=== PATIENT | female | born 1935 | race Caucasian/White ===

== ENCOUNTER 2020-01-09 15:51 | Emergency (ER) | payer OTHER ==
[~2020-01-09] VITALS: Ht 152.4 cm; Wt 54.4 kg
[2020-01-09 16:33] LABS: URINE BILIRUBIN NEGATIVE (Negative); URINE BLOOD NEGATIVE (Negative); URINE CLARITY CLEAR; URINE COLOR YELLOW; URINE GLUCOSE-RANDOM* NEGATIVE (Negative); URINE KETONES NEGATIVE (Negative); URINE NITRITE-REFLEX NEGATIVE (Negative); URINE PROTEIN (DIPSTICK) NEGATIVE (Negative); URINE UROBILINOGEN 0.2 E.U./dl (0.2-1.0)
[2020-01-09 16:36] LABS: URINE LEUKOCYTES-REFLEX 1+ (Negative)
[2020-01-09 16:38] LABS: BASOPHILS 1.1 % (0.0-2.0); EOSINOPHILS 0.7 % (0.0-3.0); HEMATOCRIT 37.2 % (37.0-47.0); HEMOGLOBIN 12.1 gm/dL (12.0-15.0); LYMPHOCYTES 26.7 % (24.0-44.0); MCH 30.4 pg (26.0-34.0); MCHC 32.6 g/dL (28.0-37.0); MCV 93.2 fL (80.0-100.0); MONOCYTES 7.1 % (1.0-8.0); PLATELET COUNT 257 thou/uL (150-400); POLYS 64.4 % (36.0-66.0); RDW 16.1 % (10.5-14.5); WBC 6.2 thou/uL (4.0-11.0)
[2020-01-09 16:42] LABS: AMP/METHAMP Negative (Negative); BARBITURATES Negative (Negative); BENZODIAZEPINES POSITIVE (Negative); COCAINE Negative (Negative); METHADONE Negative (Negative); OPIATES Negative (Negative); PCP Negative (Negative)
[2020-01-09 16:47] LABS: BACTERIA-REFLEX 1-9 Few /HPF (None Seen); CASTS None Seen /LPF (None Seen); CRYSTALS None Seen /LPF (None Seen); SQUAMOUS 0-3 Few /LPF (0-3); URINE RBC None Seen /HPF (0-2); URINE WBC-REFLEX 6-15 Few /HPF (0-5)
[2020-01-09 16:51] LABS: ANION GAP 9 mmol/L (7-16); BUN 17 mg/dL (7-18); CALCIUM 9.9 mg/dL (8.5-10.1); CHLORIDE 104 mmol/L (98-107); CO2 26 mmol/L (21-32); CREATININE 0.9 mg/dL (0.6-1.0); GLUCOSE 112 mg/dL (74-106); POTASSIUM 4.2 mmol/L (3.5-5.1); SALICYLATE < 2.8 mg/dL (2.8-20.0); SODIUM 139 mmol/L (136-145)
[2020-01-09 19:15] VITALS: BP 118/61
== END 2020-01-09 19:15 | disposition still patient (30) ==
LOC: ER 15:51
PROVIDERS: Nurse Practitioner
DX: F03.90 Unspecified dementia, unspecified severity, without behavioral disturbance, psychotic disturbance, mood disturbance, and anxiety (principal); N39.0 Urinary tract infection, site not specified; Z20.828 Contact with and (suspected) exposure to other viral communicable diseases

== ENCOUNTER 2020-01-09 20:53 | Inpatient (IN) | payer OTHER ==
[~2020-01-09] VITALS: Ht 152.4 cm; Wt 47.2 kg
[2020-01-09 19:30] VITALS: BP 161/72
--- NOTE | 2020-01-10 05:40 | NUR ---
Arrived on the [facility] floor accompanied by staff from [facility] Emergency Dept and assisted to Bed 521 A @ 19:30. VS 161/72 77 22 37.1C 97% on Room Air. Noted to have dementia and confusion. Noted to have extreme agitation. Alert, hypervigalant. Oriented ot person only. Hyper verbal, talking constantly. Within a few minutes got out of bed and ambulated on an unsteady and weak gait out of her bed and into the hallway. Talks constantly, says, "help me-I'll pay you", "I want to go to my mom", "I want to go upstairs now." Placed in a femi chair, but repeatedly stands up out of chair without regard for own safety. Order obtained from Dr. Can for clarita rodriguez. Order also obtained for Haldol 4mgIM and Ativan 1mg IM given @ 21:45. Noted to calm slightly and experience a mild reduction in anxiety. Order obtained @ 01:30 for haldol 5mg P.O. and Atiavan 1mg P.O. which the patient willingly took crushed in yogart Also provided Tylenol 650mg P.O. crushed in yogart for general discomfort. Slept for about one hour overnight in the femi chair in the day room.
[2020-01-10 09:30] VITALS: BP 153/79
--- NOTE | 2020-01-10 17:53 | NUR ---
0700 ASSUMED CARE OF PATIENT, PATIENT IN DAYROOM AWAKE IN [facility]. PATIENT WITH LAP ZACKARY ON. RESTLESS AND TRYING TO GET OUT OF CHAIR. PATIENT REFUSED MEDICATION CRUSHED IN PUDDING. DR NOTIFIED. PATIENT ONLY TAKES FEW BITES OF MEALS TODAY. PATIENT TO BATHROOM AND VOIDED IN TOILET. PATIENT INCONTINENT WELL. BRIEF ON. LS CLEAR, BS ACTIVE. PATIENT NOT ABLE TO ANSWER QUESTION. PATIENT PUSHES DIRECTOR MOBILE AWAY WITH CARES. PATIENT WIGGLES IN CHAIR AND SLIDES DOWNS CHAIR MULTIPLE TIMES. UP IN CHAIR X2 ASSIST. 1650 DIRECTOR MOBILE GOING TO GIVE ZYPREXA 3.75MG IM TO RIGHT DELTOID WHEN DIRECTOR MOBILE NOTICED SWELLING TO RIGHT SHOULDER AND WARM TO TOUCH. DR GARCIA & DR LYNCH NOTIFIED. DR GARCIA TO FLOOR TO OBSERVE, ORDERS FOR XRAYS OBTAINED. PATIENT DOES NOT COMPLAIN OF PAIN AND GOOD ROM AT THIS TIME. WILL CONTINUE TO OBSERVE
[2020-01-10 20:58] VITALS: BP 150/84
--- NOTE | 2020-01-11 05:50 | NUR ---
01-10-20 CARE TRANSFERRED AT 1900 OBSERVED PT RESTING IN BED WITH EYES CLOSED. PT AAOX1, VSS, RR EVEN AND NONLABORED ON RA, PT CONFUSED WITH AGITATION, BUT COOPERATIVE. NO OBSERVATION OF SELF HARM OR HARMING OTHERS. PT DENIED ANY PAIN. DURING MEDICATION ADMIN PT HAD NO DIFFICULTEIS. SPOKE WITH ULTRA SOUND AND XRAY, WILL BE UP IN AM TO COMPLETE HCP ORDERS. LATER PT BECAME VERY AGITATED AND WAS UNABLE TO REDIRECT, PRN MEDICATION GIVEN, LATER NOTED PT CALM, NO S/S OF ACUTE DISTRESS NOTED, PT WILL CONTINUE TO BE MONITOR PER [facility] PROTOCOL.
[2020-01-11 09:02] VITALS: BP 99/70
--- NOTE | 2020-01-11 11:39 | NUR ---
PATIENT CONTINUE ON 1:1 FOR SAFETY REASONS. HAS BEEN UP, AND OUT ON THE UNIT, SITTING IN [facility], STAFF AT HER SIDE. PATIENT FED BREAKFAST BY STAFF THIS MORNING, HAS FIAR APPETITE. SHE TOOK ALL MEDICATION CRUSHED IN PUDDING, WELL TOLERATED. PATIENT DENIES SUICIDAL IDEATION, NOT ABLE TO APPROPRIATELY RESPOND TO FURTHER ASSESSMENT QUESTIONS DUE TO COGNITIVE IMPAIRMENT. INCONTINENT CARE PROVIDED BY STAFF. NO AGGRESSION OR AGITATION NOTED AT THIS TIME, NO SIGN OF ACUTE DISTRESS NOTED, WILL MONITOR FOR SAFETY.
--- NOTE | 2020-01-11 13:11 | NUR ---
BRUNA received phone numbers for both Eldon and Mykel from Dr. Bedolla; Mykel [phone] and Eldon [phone]. Dr. Bedolla said he has spoken to both. SW team will continue to follow pt during her stay on this unit.
[2020-01-11 19:30] VITALS: BP 121/71
[2020-01-11 20:42] VITALS: BP 121/71
--- NOTE | 2020-01-12 04:36 | NUR ---
Assumed care of patient this pm shift. Patient in good spirits, calm and cooperative and very confused. Patient alert and oriented to self only. Patient takes medications crushed in pudding. Patient ambulates via wheel chair. Falls precautions in place. Assessment shows no signs of acute distress. Covid 19 pcr done as rule out. We will continue to monitor per hospital policy.
[2020-01-12 09:45] VITALS: BP 149/66
--- NOTE | 2020-01-12 14:31 | NUR ---
PATIENT TRANSFERED BACK FROM SECOND FLOOR TO [place] [address]. PATIENT IS ALERT, VERY CONFUSED, RESTLESS. PM MEDICATION GIVEN CRUSHED IN PUDDING, WELL TOLERATED. PATIENT REMAIN ON 1:1 LEVEL OF OBSERVATION FOR SAFETY. SHE REQUIRES ASSIST OF STAFF FOR ADL. PATIENT DENIES SUICIDAL IDEATION, UNABLE TO APPROPRIATELY RESPOND TO FURTHER ASSESSMENT QUESTIONS DUE TO COGNITIVE IMPAIRMENT. NO SIGN OF ACUTE DISTRESS NOTED AT THIS TIME, WILL CONTINUE TO REDIRECT, AND MONITIOR FOIR SAFETY.
--- NOTE | 2020-01-12 20:09 | NUR ---
Alert and orientated X 1 only. Sitting in gerichair without s/o distress. No speech or behavior suggestive of SI/HI. Breath sounds clear, bilaterally equal. Reg HR auscultated. Color pink with brisk capillary refill and palpable peripheral pulses. Yellow urine per brief. Active bowel sounds over soft, flat abdomen. Transferred to [facility] late morning.
[2020-01-12 20:12] VITALS: BP 142/80
--- NOTE | 2020-01-13 04:49 | NUR ---
Assumed care on 01/12/20 @ 19:15, seated in a femi chair in the day room. restless and agitated. Takes meds crushed in pudding. continues to have agitation, and PRN Olanzapine 3.75 provided @ 22:35 for agitation and repeatedly trying to climb out of the chair. Alternates between sleep and awakenin.
[2020-01-13 04:59] VITALS: BP 142/80
[2020-01-13 07:10] VITALS: BP 144/79
[2020-01-13 10:43] VITALS: BP 144/79
--- NOTE | 2020-01-13 14:17 | NUR ---
SW sent to [facility] updates for pt to [phone]. SW team will continue to follow pt during her stay on this unit.
--- NOTE | 2020-01-13 17:26 | NUR ---
1705 RESUMMED CARE FROM OVERNIGHT SHIFT THIS AM, PATIENT IN ROOM ASLEEP, I GOT PATIENT UP AND INTO DAYROOM. PATIENT ATE BREAKFAST TOOK MEDICATION CRUSHED IN APPLESAUCE. PATIENTS ABDOMEN SOFT FLAT BOWEL SOUNDS PRESENT LUNGS CLEAR. PATIENT ORIENTED TO CANNOT TELL ME ABOUT SI/HI/AH/VH AT PRESENT, PATIENT RESTLESS AT TIMES IN ARTURO CHAIR. PATIENT HAS NOT DISPLAYED ANY BEHAVIORS WILL CONTINUE TO MONITOR PATIENT FOR SAFETY AND BEHAVIORS.
[2020-01-13 19:42] VITALS: BP 143/73
--- NOTE | 2020-01-14 04:31 | NUR ---
Assumed care of pt @ 1900. Pt calm et cooperative this shift. Took medications crushed in pudding without difficulty. Ambulates with assistance of gerichair. VSWNL. Health assessment with no abnormalities at present time. Unable to assess SI/HI/AVH due to confusion but pt does not demonstrate any signs or symptoms of acute emotional distress at present time. Currently restin in gerichair in dayroom with eyes closed. Will continue to monitor per unit protocol.
[2020-01-14 07:51] VITALS: BP 148/53
--- NOTE | 2020-01-14 10:13 | NUR ---
Care assumed of patient at 0715: Patient up in femi chair at start of shift. Alert and oriented to person only. Confused and forgetful. Disorganized speech. Impulsive behaviors observed but easily re-directed. No s/s of pain or discomfort observed. No aggression or agitation observed. Patient ate 90% breakfast with set up help only. Took AM medication crushed without difficulty. Patient currently requesting her coat so she can "go catch the bus". Patient re-oriented several times, remains confused. Rather pleasant thus far this shift.
--- NOTE | 2020-01-14 15:30 | NUR ---
BRUNA contacted Pt's guardian, Mykel Gibson, , in an effort to complete the psychosocial assessment. BRUNA left a VM for a call back. As of this note Mykel has not returned the phone call. BRUNA will continue to follow up.
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
[2020-01-14 19:34] VITALS: BP 126/92
[2020-01-14 21:46] VITALS: BP 148/53
--- NOTE | 2020-01-15 05:11 | NUR ---
ASSUMED PT'S CARE @ 1900. ALERT. CONFUSED. PT WAS COOPERATIVE WITH CARE. TOOK MEDS CRUSHED IN VANILLA PUDDING. PT SLEPT OFF AND ON IN THE ARTURO CHAIR. PT FINALLY LAID IN BED AND SLEPT THE REST OF SHIFT. PT CURRENTLY IN BED SLEEPING. FALL PRECAUTIONS IN PLACE. WILL CONTINUE TO MONITOR.
[2020-01-15 10:12] VITALS: BP 126/69
--- NOTE | 2020-01-15 10:39 | NUR ---
1040 RESUMMED CARE FROM OVERNIGHT SHIFT THIS AM, PATIENT IN ROOM QUIET. WE GOT PATIENT UP TO DO HYGIENE AND TO EAT BREAKFAST. TOOK MEDICATION WITHOUT INCIDENCE CRUSHED IN APPLESAUCE. PATIENT QUIET CALM CANNOT TELL ME ABOUT SI/HI/AH/VH AT PRESENT. PATIENT ORIENTED TO SELF ONLY CONFUSED WILL CONTINUE TO MONITOR PATIENT FOR SAFETY AND BEHAVIORS.
[2020-01-15 19:37] VITALS: BP 150/77
--- NOTE | 2020-01-16 01:06 | NUR ---
Assumed care of patient this pm shift. Patient is alert and oriented to self only. Very confused. Vital signs are stable. Patient takes medications crushed in pudding. Patient is considered a falls risk and ambulates via femi-chair or wheel chair. Falls precautions in place. Assessment shows no signs of acute distress. We will continue to monitor per hospital policy.
[2020-01-16 09:46] VITALS: BP 147/74
[2020-01-16 11:00] VITALS: BP 147/74
--- NOTE | 2020-01-16 19:46 | NUR ---
Assumed patient care at 0700. patient was in the dinning room rest in the Kate chair. patient vital signs were stable. patient was calm and uncooperative. she refused her meals and medication. patient got Olanzapine PRN shot at 1527 on the left deltoid, this was after she refused and spit out her medication. Doctor Bedolla ordered a valproic acid lab for the 01/18/20 for patient.
[2020-01-16 20:27] VITALS: BP 109/82
[2020-01-16 20:30] VITALS: BP 109/82
--- NOTE | 2020-01-17 00:52 | NUR ---
PATIENT WAS SITTING UP IN GERICHAIR IN DAYROOM. SHE ANSWERED TO HER NAME. SHE IS A/0X1. PATIENT TOOK HER HS MEDS CRUSHED IN YOGURT. SHE IS A FEED ASSIST. PATIENT WAS ASSISTED TO BED AROUND 2100. SHE BECAME AGITATED DURING TRANSFER FROM ARTURO CHAIR TO BED AND YELLED AND WAS TRYING TO BITE STAFF. ONCE COMFORTABLE IN BED SHE FELL ASLEEP. PATIENT DENIES PAIN. NO APPARENT SI/HI/AVH. PATIENT AWOKE AT 0030 AND WAS ASSISTED TO [facility] AND BACK TO BED. SHE WAS PLEASANT AND COOPERATIVE AT THIS TIME. PHYSICAL ASSESSMENT WNL. LUNGS DIMINISHED HOWEVER WITH OCCASIONAL EXPIRATORY WHEEZE. BOWEL SOUNDS PRESENT. ENCOURAGING FLUIDS. PATIENT SLEEPING AT THIS TIME. BED IN LOW POSITION AND BED ALARM IS ON. ROUTINE ROUNDING TO ASSESS FOR SAFETY AND STATUS OF PATIENT.
[2020-01-17 09:02] VITALS: BP 123/79
[2020-01-17 13:57] VITALS: BP 123/79
--- NOTE | 2020-01-17 14:39 | NUR ---
WOUND CONSULT; I WAS CONSULTED TO SEE THIS PATIENT RELATED TO A STAGE 2 PRESSURE INJURY. THE WOUND IS TO THE RIGHT BUTTOCK AND S/S OF PRESSURE AND FRICTION. THERE ALSO ARE S/S CONSISTANT WITH PRESSURE INJURY TO THE SACRUM AND LEFT BUTTOCK THAT APPER TO BE MINOR. NO S/S OF INFECTION. THE AREA IS TENDER TO THE PATIENT. RECOMMENDATIONS; -CONSULT DR GREER -CONSULT DRESS SHOE INSPECTOR RE; FINN NUTRITIONAL STATUS -ADD A LOW AIRLOSS PUMP -TURN Q2H (LIMIT TIME IN A GERICHAIR) -APPLY ZGUARD TID/PRN DISCUSSED WITH PAWAN
--- NOTE | 2020-01-17 16:35 | NUR ---
Assumed patient care at 0700. patient was RESTING IN THE ARTURO CHAIR AT THE DAY ROOM.PATIENT WAS RESTLESS MOST PART OF THE DAY.PATIENT WAS COOPERATIVE WITH CARE. PATIENT ALSO WAS HALLUCINATING, STATING" OH JEN GO WALK THE DOG AND JAQUELINE". A NEW WOUND WAS DISCOVERED ON THE PATIENT LEFT BOTTOCKS. IT WAS CLEANED WITH WATER. THE WOUND CARE NURSE RECOMMENED WE USE Z GUARD PASTE ON THE WOUND, HE ALSO STATED WE KEEP PATIENT OF HER BOTTOCKS BY REPOSITIONING HER FREQUENTLY.
--- NOTE | 2020-01-17 17:07 | NUR ---
BRUNA spoke with DYAN Weeks, at [facility] concerning d/c. Pt is set to d/c 01/19/2020 @ 1030am. [facility] will set up transportation.
[2020-01-17 19:49] VITALS: BP 132/69
--- NOTE | 2020-01-18 06:00 | NUR ---
01-17-20 CARE TRANSFERRED 1900. PT AAOX1, VSS, RR EVEN AND NONLABORED ON RA, PT DENIES PAIN AND SI/HI. PT PRESENTS PLESANT, CALM AND COOPERATIVE. DURING MEDICATION ADMIN PT HAD NO DIFFICULTIES. PT WAS TRANSFERRED TO BED, AND BRIEF CHANGED, CLEANED WITH SOAP AND WATER THEN BARRIER CREAM APPLIED, LEFT BUTTOCKS REDNESS, STAGE 2. PT BED WAS ADJUSTED FOR COMFORT, ZERO S/S OF ACUTE DISTRESS NOTED. PT WILL CONTINUE TO BE MONITOR PER [facility] PROTOCOL.
[2020-01-18 09:00] VITALS: BP 110/87
--- NOTE | 2020-01-18 09:02 | NUR ---
Assess due to RD consult received from wound care. Pt admit to [facility] with behavioral disturbances. Hx PCM. Has stage II buttock ulcer. Unsure of wt changes. Pt thin however, BMI of 20. Requires feed assist. Initially was eating poor first several days, now some improvement, fair and also takes snacks during day. Will add ensure enlive and ensure pudding. Pending discharge on 01/18
--- NOTE | 2020-01-18 17:36 | NUR ---
0700 ASSUMED CARE OF PATIENT, PATIENT IN CHAIR AT THAT TIME. PATIENT CALM AND COOPERATIVE. PATIENT TO BSC VOIDED X2. PATIENT CAN FEED SELF AT TIMES AND ENCOURAGEMENT NEEDED AT TIMES. VS WNL BS ACTIVE, LS CLEAR. PATIENT TAKES MEDS CRUSHED WITHOUT DIFFICULTY. PATIENT TURNED Q 2 HRS DUE TO WOUND ON BOTTOM. WOUND CARE TEAM HERE TO ASSESS WOUND. WOUND CARE STAGE WOUND A 3 DEGREE. ORDERS TO CONTINUE Z-GUARD AND TURN Q2 HRS. PILLOW USED TO WEDGE PATIENT ON SIDE.
[2020-01-18 19:40] VITALS: BP 146/48
[2020-01-18 21:45] VITALS: BP 146/48
--- NOTE | 2020-01-19 05:32 | NUR ---
Assumed pt care at 1900. [facility] start of shift. Pt calm and pleasant. Cooperative with assessment. No observations of signs of pain or distress. Vital signs WNL. Pt has open stage 3 wound on left coccyx. Pt has been turned q2h to offload pressure on coccyx. Pericare and wound care completed at HS and in AM with zguard onto wound per orders and left open to air. Pt does not voice any SI/HI. Pt drinks water when offered. Medication complaint and takes meds crushed in pudding. Pt incontinent of urine x 1 this shift. Pt rested in bed throughout night. Pt is high fall risk and fall protocol is in place per policy. Will continue to monitor for any changes and safety.
[2020-01-19 08:05] VITALS: BP 131/106
[2020-01-19 08:50] VITALS: BP 136/106
--- NOTE | 2020-01-19 08:50 | NUR ---
PT SITTING IN ARTURO CHAIR WITH HOSEA RAYMUNDO. PT CALLING OUT FOR JEN. PT TOOK MEDS IN YOGART. PT WAS ABLE TO FEED SELF THIS AM. PT LUNGS CLEAR. PT ORIENTED TO PERSON. PT INCON. OF URINE AND UNABLE TO TELL STAFF SHE NEEDS TO URINATE. PT GOING BACK TO [facility] TODAY.
[2020-01-19] MEDS ORDERED: AMLODIPINE BESY10 MG PO (09:43)
[2020-01-19] MEDS ORDERED: DEPAKOTE SPRIN125 MG PO (09:46)
[2020-01-19] MEDS ORDERED: SEROQUEL 100 M100 M1 PO (09:46)
[2020-01-19] MEDS ORDERED: SEROQUEL 25 MG25 M1 PO (09:47)
[2020-01-19] MEDS ORDERED: ACIDOPHILUS1 EAC4 PO (09:48)
[2020-01-19] MEDS ORDERED: PEPCID20 MG PO (09:49)
--- NOTE | 2020-01-19 10:20 | NUR ---
PT TAKEN TO ROOM AND CLEANED UP. PT INCON. OF URINE AND Z-GAURD APPLIED. PT OWN CLOTHES WAS PUT ON AND PLACED BACK TO ARTURO CHAIR. PT DIDN'T HAVE ANY BEHAVIOR ISSUES WITH CLEANING. PT HAIR WASHED ALSO WITH SHOWER CAP.
--- NOTE | 2020-01-19 10:52 | NUR ---
GAVE REPORT TO JOHNIE AT [facility].
--- NOTE | 2020-01-19 12:00 | NUR ---
PT LEFT VIA W/C VAN AND PERSONAL BELONGINGS GIVEN TO SHIPPING AND RECEIVING WEIGHER.
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
== END 2020-01-19 12:00 | DRG 56 ==
LOC: SBH 20:53 → SICU 01-12 07:01 → SBH 01-12 13:32
PROVIDERS: ADMIT Psychiatry & Neurology Psychiatry; ATTEND Psychiatry & Neurology Psychiatry
DX: G30.9 Alzheimer's disease, unspecified (principal); L89.323 Pressure ulcer of left buttock, stage 3; U07.1 COVID-19; F01.51 Vascular dementia, unspecified severity, with behavioral disturbance; N39.0 Urinary tract infection, site not specified; F02.81 Dementia in other diseases classified elsewhere, unspecified severity, with behavioral disturbance; I10 Essential (primary) hypertension; G47.00 Insomnia, unspecified; Z79.899 Other long term (current) drug therapy; Z23 Encounter for immunization
CPT/HCPCS: 10880